=== PATIENT | female | born 1980 | race Caucasian/White ===

== ENCOUNTER → 2024-04-10 | Day surgery (SDC) | payer OTHER | END | disposition home or self-care (01) | LOC: JRADUS-SUR 12:46 | PROVIDERS: ATTEND Registered Nurse | PROC: 0H9U3ZX Drainage of Left Breast, Percutaneous Approach, Diagnostic (ICD-10-PCS; principal; 2024-04-10) | DX: N60.11 Diffuse cystic mastopathy of right breast (principal); D36.0 Benign neoplasm of lymph nodes | CPT/HCPCS: 19083; 19084; 76642-TC-50; 76942-TC; 77065-TC; 87899; 88305-TC; 88342-TC; A4648 ==

== ENCOUNTER 2024-05-08 12:30 | Inpatient (IN) | payer OTHER ==
[2024-05-17 12:40] VITALS: BMI 25.0
[2024-05-22] MEDS ORDERED: VANCOMYCIN 1,000 MG VIAL (RESTRICTED TO ID ONLY) ONE (07:22)
[2024-05-22] MEDS ORDERED: GENTAMICIN SO4 80 MG/2 ML VIAL ONE (07:22)
[2024-05-22] MEDS ORDERED: ceFAZolin SODIUM 1 GM VIAL ONE (07:22)
[2024-05-22] MEDS ORDERED: LIDOCAINE 1%/EPI 1:100000 (20 ML MULTI DOSE VIAL) ONE (07:23)
[2024-05-22] MEDS ORDERED: BUPIVACAINE HCL/PF 0.5% (5MG/ML) 10 ML VIAL ONE (07:23)
[2024-05-22] MEDS ORDERED: BUPIVACAINE HCL/PF 0.25% (2.5MG/ML) 10 ML VIAL ONE (07:32)
[2024-05-22] MEDS ORDERED: ISOSULFAN BLUE 50 MG/5 ML VIAL SQ ONE (07:35)
[2024-05-22] MEDS ORDERED: LIDOCAINE HCL/PF 2% SDV 5ML VIAL ONE (07:44)
[2024-05-22] MEDS ORDERED: DEXAMETHASONE SOD PHOSPHATE 4 MG/1 ML VIAL ONE (07:44)
[2024-05-22] MEDS ORDERED: ALBUTEROL SO4 HFA INHALER IH ONE ×2 (07:44→07:50)
[2024-05-22] MEDS ORDERED: ROCURONIUM BROMIDE 50 MG/5 ML SYRINGE ONE ×2 (07:45→09:23)
[2024-05-22] MEDS ORDERED: PROPOFOL 20 ML ONE ×2 (07:45→11:37)
[2024-05-22] MEDS ORDERED: MIDAZOLAM HCL 2 MG/2 ML SINGLE DOSE VIAL ONE (07:45)
[2024-05-22] MEDS ORDERED: SEVOFLURANE 250 ML BTL ONE (07:49)
[2024-05-22] MEDS ORDERED: HYDROmorphone HCL/PF 1 MG/ML VIAL ONE ×2 (08:42→11:49)
[2024-05-22] MEDS ORDERED: BUPIVACAINE HCL/EPINEPHRINE/PF 30 ML VIAL IJ ONE (08:44)
[2024-05-22] MEDS ORDERED: BUPIVACAINE LIPOSOME/PF (EXPAREL) 266 MG/20 ML VIAL ONE (08:45)
[2024-05-22] MEDS ORDERED: SUGAMMADEX SODIUM 200 MG/2 ML VIAL ONE (08:53)
[2024-05-22] MEDS ORDERED: ONDANSETRON 4 MG/2 ML VIAL ONE (08:53)
[2024-05-22] MEDS ORDERED: ACETAMINOPHEN INJECTION 100 ML ONE (09:23)
[2024-05-22] MEDS ORDERED: NITROGLYCERIN 2% OINTMENT - 1GM PACKET TD ONE (10:33)
[2024-05-22] MEDS ORDERED: oxyCODONE HCL 5 MG TABLET PO PRN (12:01)
[2024-05-22] MEDS ORDERED: FENTANYL CITRATE/PF 50 MCG/ML VIAL ONE ×2 (12:07→12:25)
[2024-05-22] MEDS ORDERED: LACTATED RINGERS SOLUTION 1,000 ML IV SCH (12:15)
[2024-05-22] MEDS: IBUPROFEN 800 MG/8 ML IJ IVPB PRN (12:20)
[2024-05-22] MEDS: LACTATED RINGERS SOLUTION 1,000 ML IV SCH (13:30)
[2024-05-22] MEDS: ONDANSETRON 4 MG/2 ML VIAL IVPUSH PRN (14:06)
[2024-05-22] MEDS: CEFAZOLIN SODIUM 2 GM in DEXTROSE 5%-WATER 100 ML IVPB ONE (14:40)
[2024-05-22] MEDS: NITROGLYCERIN 2% OINTMENT - 1GM PACKET TD SCH (14:40)
[2024-05-22] MEDS: CEFAZOLIN 1 GM/D5W 1 GRAM/50 ML BAG IVPB SCH (17:08)
[2024-05-22] MEDS: ACETAMINOPHEN 325 MG TABLET (FP) PO PRN (22:09)
[2024-05-22] MEDS: HYDROmorphone HCl 2 MG/ML VIAL SQ PRN (22:09)
[2024-05-22] MEDS: CEFAZOLIN 1 GM in DEXTROSE 5%-WATER - 50 ML IVPB SCH (23:50)
[2024-05-23 03:09] VITALS: RESP 18
[2024-05-23] MEDS ORDERED: PATIENT'S OWN MEDICATION (NON-FORMULARY) (Fluticasone Propion/Salmeterol [Fluticasone-Salm IH SCH (10:00)
[2024-05-23] MEDS ORDERED: PATIENT'S OWN MEDICATION (NON-FORMULARY) (Linaclotide 145 MCG Capsule) PO SCH (10:00)
[2024-05-23 10:30] VITALS: BP 110/68; PULSE 76; TEMP 97.9
[2024-05-23] MEDS: ENOXAPARIN NA (PORCINE) 40 MG/0.4 ML DISP.SYRIN SQ SCH (10:56)
== END 2024-05-23 17:26 | disposition home or self-care (01) | DRG 362 ==
LOC: FM/S 05-22 06:12 → EDSTATUS 05-22 13:00 → FM/S 05-22 15:37
PROVIDERS: ADMIT Surgery Surgical Oncology; ATTEND Plastic Surgery
PROC: 0HTT0ZZ Resection of Right Breast, Open Approach (ICD-10-PCS; principal; 2024-05-22 08:42)
PROC: 07B50ZX Excision of Right Axillary Lymphatic, Open Approach, Diagnostic (ICD-10-PCS; 2024-05-22 08:42)
PROC: 0HUV0JZ Supplement Bilateral Breast with Synthetic Substitute, Open Approach (ICD-10-PCS; 2024-05-22 08:42)
PROC: 4A1GXSH Monitoring of Skin and Breast Vascular Perfusion using Indocyanine Green Dye, External Approach (ICD-10-PCS; 2024-05-22 08:42)
PROC: 0HQU0ZZ Repair Left Breast, Open Approach (ICD-10-PCS; 2024-05-22 08:42)
DX: C50.911 Malignant neoplasm of unspecified site of right female breast (principal)
CPT/HCPCS: 81025; 88305-TC; 88307-TC; 88341-TC; 88342-TC; 94760; C1789; J0131; L8600

== ENCOUNTER 2024-09-26 08:17 | Day surgery (SDC) | payer OTHER ==
[2024-09-19 15:12] VITALS: BMI 25.7
[2024-09-26] MEDS ORDERED: PROPOFOL 20 ML ONE ×2 (09:54→11:35)
[2024-09-26] MEDS ORDERED: MIDAZOLAM HCL 2 MG/2 ML SINGLE DOSE VIAL ONE ×2 (09:54→11:07)
[2024-09-26] MEDS ORDERED: SODIUM BICARBONATE 8.4% 50 MEQ/50 ML VIAL ONE ×2 (09:56→10:50)
[2024-09-26] MEDS ORDERED: LIDOCAINE HCL 2% (20ML MULTI-DOSE VIAL) ONE ×2 (09:56→10:51)
[2024-09-26] MEDS ORDERED: EPINEPHrine 1:1000 P/F - 1 MG/ML AMP ONE ×2 (09:56→10:50)
[2024-09-26] MEDS ORDERED: BUPIVACAINE HCL/EPINEPHRINE/PF 30 ML VIAL IJ ONE ×2 (09:56→10:46)
[2024-09-26] MEDS ORDERED: oxyCODONE HCL 5 MG TABLET PO PRN ×2 (10:48)
[2024-09-26] MEDS ORDERED: PROMETHAZINE HCL 25 MG/1 ML VIAL IVPB PRN (10:48)
[2024-09-26] MEDS ORDERED: LACTATED RINGERS SOLUTION 1,000 ML IV SCH (11:00)
[2024-09-26] MEDS ORDERED: ceFAZolin SODIUM 1 GM VIAL ONE ×2 (11:24→11:41)
[2024-09-26] MEDS ORDERED: DEXAMETHASONE SOD PHOSPHATE 4 MG/1 ML VIAL ONE (11:24)
[2024-09-26] MEDS ORDERED: VANCOMYCIN 1,000 MG VIAL (RESTRICTED TO ID ONLY) ONE (11:41)
[2024-09-26] MEDS ORDERED: GENTAMICIN SO4 80 MG/2 ML VIAL ONE (11:41)
[2024-09-26] MEDS ORDERED: ONDANSETRON 4 MG/2 ML VIAL ONE ×2 (12:15→13:04)
[2024-09-26] MEDS ORDERED: KETOROLAC TROMETHAMINE 30 MG/1 ML VIAL ONE (12:17)
[2024-09-26] MEDS ORDERED: ACETAMINOPHEN INJECTION 100 ML ONE (12:58)
[2024-09-26] MEDS ORDERED: FENTANYL CITRATE/PF 50 MCG/ML VIAL ONE ×2 (13:04→13:18)
[2024-09-26] MEDS: ONDANSETRON 4 MG/2 ML VIAL IVPUSH PRN (13:12)
[2024-09-26 13:36] VITALS: RESP 16
[2024-09-26] MEDS: oxyCODONE HCL 5 MG TABLET ONE (14:14)
[2024-09-26 15:57] VITALS: BP 122/65; PULSE 84; TEMP 97.6
== END 2024-09-26 15:05 | disposition home or self-care (01) ==
LOC: FASU 08:17
PROVIDERS: ATTEND Plastic Surgery
PROC: 0HBU0ZZ Excision of Left Breast, Open Approach (ICD-10-PCS; 2024-09-26)
PROC: 0HBV3ZZ Excision of Bilateral Breast, Percutaneous Approach (ICD-10-PCS; 2024-09-26)
PROC: 0HRV37Z Replacement of Bilateral Breast with Autologous Tissue Substitute, Percutaneous Approach (ICD-10-PCS; 2024-09-26)
PROC: 0HPT0JZ Removal of Synthetic Substitute from Right Breast, Open Approach (ICD-10-PCS; principal; 2024-09-26 11:35)
PROC: 0HRT0JZ Replacement of Right Breast with Synthetic Substitute, Open Approach (ICD-10-PCS; 2024-09-26 11:35)
PROC: 0HX5XZZ Transfer Chest Skin, External Approach (ICD-10-PCS; 2024-09-26 11:35)
DX: Z85.3 Personal history of malignant neoplasm of breast (principal); Z90.11 Acquired absence of right breast and nipple; N65.0 Deformity of reconstructed breast; N65.1 Disproportion of reconstructed breast
CPT/HCPCS: 14301; 14302; 15771; 15772; 19318; 19342; 19371; L8600; 81025; 88304-TC; 88305-TC; 88342-TC; 94760; J0131